=== PATIENT | female | born 1970 | race Caucasian/White ===

== ENCOUNTER 2018-07-11 13:48 | Emergency (ER) | payer OTHER, SELFPAY ==
--- NOTE | 2018-07-11 14:48 | RAD ---
LEFT SHOULDER THREE VIEWS: History: Pain. Comparison: None. FINDINGS: The glenohumeral joint space is preserved. No fracture or dislocation. Visualized left ribs are unrem arkable. IMPRESSION: Unremarkable three views left shoulder. POS: [facility]
== END 2018-07-11 15:00 | disposition home or self-care (01) ==
LOC: MADERS 13:48
DX: S43.402A Unspecified sprain of left shoulder joint, initial encounter (principal); X50.9XXA Other and unspecified overexertion or strenuous movements or postures, initial encounter